=== PATIENT | female | born 1950 | race Caucasian/White ===

== ENCOUNTER 2024-09-04 17:51 | Emergency (ER) | payer OTHER ==
--- NOTE | 2024-09-04 18:30 | ER ---
Nurse's Notes [facility] Name: Rachel Rios Age: 74 yrs Sex: Female : 1950 Arrival Date: 09/04/2024 Time: 17:51 Bed IW5 Private MD: Diagnosis: Encounter for removal of sutures-calixto Presentation: 09/04 18:18 Chief complaint: Patient states: Here to have calixto removed that were placed on her cm10 head on 08/27. Coronavirus screen: Client denies travel out of the [place] in the last 14 days. Ebola Screen: Patient denies travel to an Ebola-affected area in the 21 days before illness onset. No symptoms or risks identified at this time. Initial Sepsis Screen: Does the patient meet any 2 criteria? No. Patient's initial sepsis screen is negative. Does the patient have a suspected source of infection? No. Patient's initial sepsis screen is negative. Risk Assessment: Do you want to hurt yourself or someone else? Patient reports no desire to harm self or others. Onset of symptoms was August 27, 2024. 18:18 Method Of Arrival: Ambulatory cm10 18:18 Acuity: RODRIGUEZ 4 cm10 Triage Assessment: 18:21 General: Appears in no apparent distress. comfortable, Behavior is calm, cooperative. cm10 Pain: Denies pain. Neuro: No deficits noted. Level of Consciousness is awake, alert, obeys commands, Oriented to person, place, time, situation, Appropriate for age. Respiratory: No deficits noted. Airway is patent Respiratory effort is even, unlabored, Respiratory pattern is regular, symmetrical. Historical: - Allergies: 18:20 PENICILLINS; cm10 - PMHx: 18:22 Hypertensive disorder; Breast Cancer; cm10 - Immunization history:: Adult Immunizations up to date. - Infectious Disease History:: Denies. - Social history:: Smoking status: unknown. Screenin:22 [facility] ED Fall Risk Assessment (Adult) History of falling in the last 3 months, cm10 including since admission Yes- single mechanical fall (1 pt) Confusion or Disorientation No (0 pts) Intoxicated or Sedated No (0 pts) Impaired Gait No (0 pts) Mobility Assist Device Used No (0 pt) Altered Elimination No (0 pt) Score/Fall Risk Level 0 - 2 = Low Risk Oriented to surroundings, Maintained a safe environment, Hourly rounding (assess needs \T\ fall precautionary measures) done. Abuse screen: Denies threats or abuse. Denies injuries from another. Nutritional screening: No deficits noted. Tuberculosis screening: No symptoms or risk factors identified. Vital Signs: 18:18 BP 104 / 76; Pulse 80; Resp 16; Temp 97.8; Pulse Ox 95% on R/A; Pain 0/10; cm10 18:18 Pain Scale: Adult cm10 ED Course: 17:55 Patient arrived in ED. mr 18:05 [facility] kb 18:05 Alicia Paz MD is Attending Physician. kb 18:20 Triage completed. cm10 18:21 Arm band placed on right wrist. Patient placed in waiting room. cm10 18:21 Patient has correct armband on for positive identification. Provided Education on: ER cm10 process and procedures.. Cardiac monitoring not applicable on this patient. 18:22 No provider procedures requiring assistance completed. Patient did not have IV access cm10 during this emergency room visit. Removal of Removed calixto from head Calixto site is well healed Patient tolerated well. Administered Medications: No medications were administered Medication: 18:22 VIS not applicable for this client. cm10 Outcome: 18:23 Discharged to home ambulatory, cm10 18:23 Condition: good 18:23 Discharge instructions given to patient, Instructed on discharge instructions, follow up and referral plans. Demonstrated understanding of instructions, follow-up care, 18:30 Discharge ordered by . kb 18:31 Patient left the ED. cm10 Signatures: Kaycee Quiles FNP-C FNP-Rachel Bryson, Arron Reg Tammy Dorman, RN RN cm10 Corrections: (The following items were deleted from the chart) 18:22 18:20 PMHx: None; cm10 cm10 18:22 18:22 PMHx: History of urinary tract infection; cm10 cm10
--- NOTE | 2024-09-04 18:30 | EDPHYS ---
Physician Documentation [facility] Name: Rachel Rios Age: 74 yrs Sex: Female : 1950 Arrival Date: 09/04/2024 Time: 17:51 Bed IW5 Private MD: ED Physician Alicia Paz HPI: 09/04 18:28 This 74 yrs old Female presents to ER via Ambulatory with complaints of Suture Removal. kb 18:28 Patient is a 74-year-old female who presents for staple removal. States she fell on kb August 27, was seen at [facility] and had sukhdev placed to scalp. Was told to come into an ER today to have sukhdev removed. Denies any pain, swelling, drainage.. Historical: - Allergies: 18:20 PENICILLINS; cm10 - PMHx: 18:22 Hypertensive disorder; Breast Cancer; cm10 - Immunization history:: Adult Immunizations up to date. - Infectious Disease History:: Denies. - Social history:: Smoking status: unknown. ROS: 18:26 Constitutional: As per HPI kb Exam: 18:26 Constitutional: This is a well developed, well nourished patient who is awake, alert, kb and in no acute distress. Head/Face: Normocephalic, atraumatic. ENT: Moist Mucous membranes Cardiovascular: Regular rate Respiratory: Respirations even and unlabored. No increased work of breathing. Talking in full sentences MS/ Extremity: Pulses equal, no cyanosis. Neurovascular intact. Full, normal range of motion. Neuro: Awake and alert, GCS 15, oriented to person, place, time, and situation. 18:26 Skin: Wound recheck: Staple laceration closure: the wound is healing well, the edges are well approximated, no evidence of dehiscence, no drainage, no erythema, no swelling, Vital Signs: 18:18 BP 104 / 76; Pulse 80; Resp 16; Temp 97.8; Pulse Ox 95% on R/A; Pain 0/10; cm10 18:18 Pain Scale: Adult cm10 Procedures: 18:27 Suture/Staple removal: Removed 3 sukhdev, from left side of the back of head, site kb appears well healed, Patient tolerated well. MDM: 18:05 Medical Screening Exam initiated kb 18:28 Data reviewed: vital signs, nurses notes. Counseling: I had a detailed discussion with kb the patient and/or guardian regarding the historical points, exam findings, and any diagnostic results supporting the discharge/admit diagnosis, the need for outpatient follow up, a family practitioner, to return to the emergency department if symptoms worsen or persist or if there are any questions or concerns that arise at home. Administered Medications: No medications were administered Disposition Summary: 09/04/24 18:30 Discharge Ordered Notes: Location: Home Condition: Stable kb Diagnosis - Encounter for removal of sutures - sukhdev kb Followup: kb - With: Emergency Department - When: As needed - Reason: Worsening of condition Followup: kb - With: Private Physician - When: 2 - 3 days - Reason: Recheck today's complaints, Continuance of care, Re-evaluation by your physician Discharge Instructions: - Discharge Summary Sheet kb - Suture Removal, Care After kb Forms: - Medication Reconciliation Form kb - Antibiotic Education kb - Prescription Opioid Use kb - Patient Portal Instructions kb - Leadership Thank You Letter kb Signatures: Kaycee Quiles FNP-C FNP-Tammy Perez RN RN cm10 Corrections: (The following items were deleted from the chart) 18:22 18:20 PMHx: None; cm10 cm10 18:22 18:22 PMHx: History of urinary tract infection; cm10 cm10
[2024-09-04 18:52] VITALS: BP 104/76; TEMP 97.8; O2SAT 95
== END 2024-09-04 18:31 | disposition home or self-care (01) ==
LOC: ER 17:51
DX: Z48.02 Encounter for removal of sutures (principal)